=== PATIENT | female | born 1980 | race Caucasian/White ===

== ENCOUNTER 2019-03-14 18:50 | Emergency (ER) | payer MEDICAID ==
[~2019-03-14] VITALS: Ht 170.2 cm; Wt 112.7 kg
[2019-03-14 18:58] VITALS: Ht 170.2 cm; Wt 112.7 kg
[2019-03-14] MEDS ORDERED: PROZAC20 MG PO (19:00)
[2019-03-14] MEDS ORDERED: TOPROL XL100 MG PO (19:00)
[2019-03-14] MEDS ORDERED: TRAMADOL HCL E100 M1 PO (19:00)
[2019-03-14] MEDS ORDERED: ZYRTEC10 MG PO (22:06)
[2019-03-14] MEDS ORDERED: AUGMENTIN 875-11 TAB PO (22:06)
[2019-03-14] MEDS ORDERED: FLUTICASONE PRO16 GM NASAL (22:06)
[2019-03-14 22:45] VITALS: BP 128/82
== END 2019-03-14 22:45 | disposition home or self-care (01) ==
LOC: D.ER 18:50
DX: J32.9 Chronic sinusitis, unspecified (principal); I10 Essential (primary) hypertension